=== PATIENT | male | born 1965 | race Caucasian/White ===

== ENCOUNTER 2019-03-09 06:14 | Day surgery (SDC) | payer BC, OTHER ==
[2019-03-09] MEDS ORDERED: ONDANSETRON 4 MG/2 ML VIAL IVP STA (06:48)
[2019-03-09] MEDS ORDERED: SODIUM CHLORIDE 0.9% 1,000 ML IV ONE (06:48)
[2019-03-09] MEDS ORDERED: GLUCAGON 1 MG/ML VIAL IVP STA (06:49)
[2019-03-09] MEDS ORDERED: FAMOTIDINE 20 MG/2 ML VIAL IVP STA (06:50)
--- NOTE | 2019-03-09 06:53 | ED Physician Documentation ---
PD HPI HEENT - Stated complaint Stated Complaint: UNABLE TO EAT/DRINK - Chief complaint Chief Complaint: Heent - History obtained from History obtained from: Patient - History of Present Illness Timing - onset: How many hours ago (36) Timing - duration: Hours (36) Timing - details: Abrupt onset (He was eating chicken for dinner 1-1/2 days ago and towards the mid to end part of his meal he started eating a little faster to finish up and had the feeling of the bite of chicken getting caught in his esophagus. He is unable to swallow after that. Attempt at taking water or fluids which caused him to vomit. He was having some emesis of his saliva periodically that night and through the day. He was unable to get down liquids drinking. He states he was able to sleep last night without having to awaken to vomit his saliva. However attempting the even sips of water today caused him to have to vomit it back up and would cause still pressure in the esophageal and chest area. He has had this similarly happened in the past but typically for just a few minutes or so at a time. He would often be able to just wait a few minutes and then try sips of water and cola and it would either pass or he would vomit up and get the food up as well. He has not had any episodes as protracted as this.) Location: Throat (impacted chicken from his dinner Wednesday, still stuck.) Worsens: Swalllowing Associated symptoms: Unable to swallow. No: Fever, Congestion, Swollen nodes Similar symptoms before: No diagnosis (would only be for few minutes in the past, before then resolves.) Recently seen: Not recently seen Review of Systems Constitutional: denies: Fever Nose: denies: Rhinorrhea / runny nose, Congestion Throat: denies: Sore throat Cardiac: denies: Palpitations Respiratory: denies: Dyspnea, Cough GI: reports: Nausea, Vomiting. denies: Abdominal Pain, Diarrhea Neurologic: reports: Generalized weakness. denies: Near syncope, Altered mental status, Headache PD PAST MEDICAL HISTORY - Past Medical History Past Medical History: No Cardiovascular: None Respiratory: None Neuro: None Endocrine/Autoimmune: None - Past Surgical History Past Surgical History: Yes HEENT: Tonsil/Adenoidectomy - Present Medications Home Medications: Ambulatory Orders Medication Instructions Recorded Confirmed No Known Home Medications 03/09/19 03/09/19 - Allergies Allergies/Adverse Reactions: Allergies Allergy/AdvReac Type Severity Reaction Status Date / Time aspirin Allergy Edema Verified 03/09/19 06:23 - Social History Does the pt smoke?: No Smoking Status: Never smoker ETOH Use: Liquor Does the pt have substance abuse?: No - Immunizations Immunizations are current?: Yes - POLST Patient has POLST: No PD ED PE NORMAL - Vitals Vital signs reviewed: Yes - General General: Alert and oriented X 3, No acute distress, Well developed/nourished - HEENT HEENT: Pharynx benign - Neck Neck: Supple, no meningeal sign, No adenopathy - Cardiac Cardiac: RRR, No murmur - Respiratory Respiratory: Clear bilaterally - Abdomen Abdomen: Soft, Non tender - Derm Derm: Normal color, Warm and dry - Neuro Neuro: Alert and oriented X 3, No motor deficit, Normal speech Results - Vitals Vitals: Vital Signs - 24 hr 03/09/19 06:18 Temperature 36.3 C L Heart Rate 48 L Respiratory 16 Rate Blood Pressure 145/84 H O2 Saturation 100 - Labs Labs: Laboratory Tests 03/09/19 03/09/19 03/09/19 06:55 06:55 07:14 WBC 3.9 L RBC 4.94 Hgb 16.0 Hct 46.0 MCV 93.3 MCH 32.4 H MCHC 34.7 RDW 13.5 Plt Count 263 MPV 8.6 Neut # (Auto) 2.2 Lymph # (Auto) 1.1 L [place] # (Auto) 0.5 Eos # (Auto) 0.1 Baso # (Auto) 0.1 Absolute Nucleated RBC 0.00 Nucleated RBC % 0.0 Sodium 143 Potassium 4.1 Chloride 103 Carbon Dioxide 29 Anion Gap 11.0 BUN 29 H Creatinine 0.9 Estimated GFR (MDRD) 89 Glucose 93 POC Whole Bld Glucose 75 Calcium 9.5 Total Bilirubin 1.4 H AST 28 ALT 29 Alkaline Phosphatase 49 Total Protein 8.3 H Albumin 4.6 Globulin 3.7 Albumin/Globulin Ratio 1.2 Lipase 27 PD MEDICAL DECISION MAKING - ED course Complexity details: considered differential (This sounds very consistent with a food impaction. He has been prolonged now for a day and a half. We can try some IV medications along with carbonated beverage and see if that helps. We will give him IV fluids for his dehydration he would have for that time course. If this does not readily improve his ability to swallow, then will contact surgery for endoscopic treatment.), d/w patient, d/w clinical sales consultant (The patient did not improve with IV medications and attempted oral fluids again. I talked with Dr. Morrell who will come in to evaluate and treat the patient endoscopically.) Departure - Departure Clinical Impression: Esophageal obstruction due to food impaction, Dehydration Condition: Stable Record reviewed to determine appropriate education?: Yes
[2019-03-09 07:05] LABS: BASOPHILS # (AUTO) 0.1 10^3/uL (0.0-0.1); BASOPHILS % (AUTO) 2.2 %; EOSINOPHILS # (AUTO) 0.1 10^3/uL (0.0-0.7); LYMPHOCYTES # (AUTO) 1.1 10^3/uL (1.5-3.5); LYMPHOCYTES % (AUTO) 27.7 %; MEAN CORPUSCULAR HEMOGLOBIN 32.4 pg (27.0-31.0); MEAN CORPUSCULAR HGB CONC 34.7 g/dL (32.0-36.0); MEAN CORPUSCULAR VOLUME 93.3 fL (80.0-94.0); MEAN PLATELET VOLUME 8.6 fL (7.4-11.4); MONOCYTES # (AUTO) 0.5 10^3/uL (0.0-1.0); MONOCYTES % (AUTO) 11.6 %; NEUTROPHILS # (AUTO) 2.2 10^3/uL (1.5-6.6); NEUTROPHILS % (AUTO) 55.5 %; PLT - PLATELET COUNT 263 10^3/uL (130-450); RED BLOOD COUNT 4.94 10^6/uL (4.70-6.10); RED CELL DISTRIBUTION WIDTH 13.5 % (12.0-15.0); WHITE BLOOD COUNT 3.9 x10^3/uL (4.8-10.8)
[2019-03-09 07:19] LABS: ALBUMIN 4.6 g/dL (3.2-5.5); ALBUMIN/GLOBULIN RATIO 1.2 (1.0-2.2); BILIRUBIN,TOTAL 1.4 mg/dL (0.2-1.0); CALCIUM 9.5 mg/dL (8.5-10.3); CREATININE 0.9 mg/dL (0.6-1.2); TOTAL PROTEIN 8.3 g/dL (6.7-8.2)
--- NOTE | 2019-03-09 09:53 | ANESTHESIA ---
Pre-Anesthesia VS, & Labs - Diagnosis food bolus@esophagus - Procedure EGD, food bolus removal Vital Signs: Temp Pulse Resp BP Pulse Ox 36.3 C L 48 L 16 145/84 H 100 03/09/19 06:18 03/09/19 06:18 03/09/19 06:18 03/09/19 06:18 03/09/19 06:18 Height 6 ft 4 in Weight (kg) 86.183 kg Body Mass Index 23.1 - NPO >8 hours Last Fluid Intake: attempted fluids t/o AM - Lab Results Current Lab Results: Laboratory Tests 03/09/19 07:14: POC Whole Bld Glucose 75 03/09/19 06:55: Sodium 143, Potassium 4.1, Chloride 103, Carbon Dioxide 29, Anion Gap 11.0, BUN 29 H, Creatinine 0.9, Estimated GFR (MDRD) 89, Glucose 93, Calcium 9.5, Total Bilirubin 1.4 H, AST 28, ALT 29, Alkaline Phosphatase 49, Total Protein 8.3 H, Albumin 4.6, Globulin 3.7, Albumin/Globulin Ratio 1.2, Lipase 27 03/09/19 06:55: WBC 3.9 L, RBC 4.94, Hgb 16.0, Hct 46.0, MCV 93.3, MCH 32.4 H, MCHC 34.7, RDW 13.5, Plt Count 263, MPV 8.6, Neut # (Auto) 2.2, Lymph # (Auto) 1.1 L, [place] # (Auto) 0.5, Eos # (Auto) 0.1, Baso # (Auto) 0.1, Absolute Nucleated RBC 0.00, Nucleated RBC % 0.0 Lab results reviewed: Yes Fish Bones: 03/09/19 06:55 03/09/19 06:55 Home Medications and Allergies Home Medications: Ambulatory Orders No Known Home Medications 03/09/19 No Known Home Medications 03/09/19 Allergies/Adverse Reactions: Allergies Allergy/AdvReac Type Severity Reaction Status Date / Time aspirin Allergy Edema Verified 03/09/19 06:23 Anes History & Medical History - Anesthetic History Anesthesia Complications: reports: No previous complications Family history of Anesthesia Complications: Denies Family history of Malignant Hyperthermia: Denies - Medical History Cardiovascular: reports: None Pulmonary: reports: None Neuro: reports: None Endocrine/Autoimmune: reports: None Smoking Status: Never smoker - Surgical History Eyes Ears Nose Throat (EENT): Tonsil/Adenoidectomy Exam General: Alert, Oriented x3, Cooperative Dental: WNL Mouth Openin Fingerbreadth Neck Mobility: Normal Mallampati classification: I Respiratory: Lungs clear, Normal breath sounds Cardiovascular: Regular rate Neurological: Normal speech Mental/Cognitive Status: Alert/Oriented X3, Normal for patient Cognitive Status: Within normal limits Plan Anesthesia Type: General Consent for Procedure(s) Verified and Reviewed: Yes Code Status: Attempt Resuscitation ASA classification: 1-Healthy patient Is this case an emergency?: Yes
[2019-03-09] MEDS ORDERED: LACTATED RINGERS 1,000 ML IV ONE ×2 (11:13→11:34)
[2019-03-09] MEDS ORDERED: ROCURONIUM 50 MG/5 ML VIAL IVP ONE (11:35)
[2019-03-09] MEDS ORDERED: MIDAZOLAM 2 MG/2 ML VIAL IVP ONE (11:35)
[2019-03-09] MEDS ORDERED: fentaNYL 100 MCG/2 ML VIAL IVP ONE (11:35)
[2019-03-09] MEDS ORDERED: ONDANSETRON 4 MG/2 ML VIAL IVP ONE (11:35)
[2019-03-09] MEDS ORDERED: DEXAMETHASONE 4 MG/ML VIAL IVP ONE (11:35)
[2019-03-09] MEDS ORDERED: PROPOFOL 200 MG/20 ML VIAL IVP ONE (11:35)
[2019-03-09] MEDS ORDERED: SUCCINYLCHOLINE 200 MG/10 ML VIAL IVP ONE (11:35)
[2019-03-09] MEDS ORDERED: LIDOCAINE-MPF 1% 5 ML VIAL SUBQ ONE (11:35)
--- NOTE | 2019-03-09 12:06 | CONSULTATION NOTE ---
Referring Provider Name of Referring Provider:: Dr. Nabeel Franco Consult Date: 03/09/19 Chief Complaint - Chief Complaint Chief Complaint: Esophageal obstruction with chicken History of Present Illness - Admitted From Admitted From:: Not admitted - outpatient - History Obtained From Records Reviewed: Yes but not much information there History obtained from: Patient and Dr. Franco Exam Limitations: None - History of Present Illness HPI Comment/Other: Dr. Nabeel Franco called me on consultation to evaluate and treat this very pleasant 53-year-old male for esophageal obstruction due to chicken. This occurred night during dinner. The patient states that he has had this occur numerous times over the past 3 to 4 years but this always has resolved with time. Sometimes like to drink some fluid or soda to get this food bolus to go down. This time it did not. Sometimes he is able to throw up and because the food to become dislodged but again this time it did not. Prior to this he denies any hematemesis, melena, hematochezia, weight loss, constipation, diarrhea, or change in his bowel habits. He has not had a previous EGD. 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 History - Past Medical History Cardiovascular: reports: None Respiratory: reports: None Neuro: reports: None Endocrine/Autoimmune: reports: None MRSA Hx?: No - Past Surgical History HEENT: reports: Tonsil/Adenoidectomy - POLST Patient has POLST: No Meds/Allgy - Home Medications Home Medications: Ambulatory Orders Medication Instructions Recorded Confirmed No Known Home Medications 03/09/19 03/09/19 - Allergies Allergies/Adverse Reactions: Allergies Allergy/AdvReac Type Severity Reaction Status Date / Time aspirin Allergy Edema Verified 03/09/19 06:23 Review of Systems - Constitutional Constitutional: denies: Fatigue - Eyes Eyes: denies: Pain - Ears, Nose & Throat Ears, Nose & Throat: denies: Ear pain - Cardiovascular Cariovascular: reports: Chest pain (There has been some increasing chest pain with his inability to swallow this piece of food.). denies: Irregular heart rate - Respiratory Respiratory: denies: Cough, Sputum production, Wheezing, Hemoptysis - Gastrointestinal Gastrointestinal: denies: Abdominal pain, Abdominal distention, Constipation, Diarrhea, Change in bowel habits, Rectal bleeding - Genitourinary Genitourinary: denies: Dysuria - Musculoskeletal Musculoskeletal: denies: Muscle pain, Back pain - Neurological Neurological: denies: General weakness, Focal weakness Exam - Vital Signs Reviewed Vital Signs: Yes Vital Signs: Vital Signs x48h Temp Pulse Resp BP Pulse Ox 03/09/19 10:31 42 L 14 136/78 H 100 03/09/19 06:18 36.3 C L 48 L 16 145/84 H 100 - Physical Exam General Appearance: positive: Mild distress (Sitting up, throwing up in a blue bag in room 6 at [facility] emergency department.) Eyes Bilateral: positive: No lid inflammation, Conjunctivae nml, No scleral icterus ENT: positive: Dry mucous membranes Neck: positive: Trachea midline Respiratory: positive: Chest non-tender, No respiratory distress, Breath sounds nml Cardiovascular: positive: Regular rate & rhythm Abdomen: positive: Non-tender, No organomegaly, Nml bowel sounds, No distention Skin: positive: Color nml Extremities: positive: Nml appearance Neurologic/Psychiatric: positive: Oriented x3, Motor nml, Sensation nml, Mood/affect nml Conclusion/Plan - Diagnosis Diagnosis: Esophageal obstruction due to food bolus - Plan Plan: Esophagogastroduodenoscopy with removal of food bolus and possible biopsies and/or polypectomies. Indications, procedure, and risks including but not limited to perforation requiring operative repair, bleeding with its risks, and were fully explained to him. Safety during this procedure mandates that the patient be intubated for it. Review of his history does not reveal any significant systemic disease that would contraindicate use of anesthesia. All questions were fully answered. Verbal and written consent was obtained. The patient in preparation for his esophagogastroduodenoscopy will be n.p.o. 45 minutes of [id number] time spent with the patient the majority of which was spent in discussion, coordination of their care, and completion of the requisite paperwork [employer] disclaimer: This document was created in part using voice recognition technology. Because of the inherent limitations of the system ([employer] user manual states that the licensee understands that speech recognition is a statistical process and that recognition errors are inherent in the process), occasional sa me sounding word substitutions and grammatical errors do occur and persist despite proofreading. Please read this document for context. - Lab Results Lab results reviewed: Yes Jason Bones: 03/09/19 06:55 03/09/19 06:55
[2019-03-09] MEDS ORDERED: HYDROmorphone 0.5 MG/0.5 ML SYRINGE ONE (12:31)
[2019-03-09 13:23] VITALS: BP 138/82
== END 2019-03-09 09:16 | disposition home or self-care (01) ==
LOC: ED 06:14 → SDS 09:15
PROVIDERS: ATTEND Surgery
PROC: 0DC58ZZ Extirpation of Matter from Esophagus, Via Natural or Artificial Opening Endoscopic (ICD-10-PCS; principal; 2019-03-09 11:00)
DX: T18.128A Food in esophagus causing other injury, initial encounter (principal); X58.XXXA Exposure to other specified factors, initial encounter; Y92.009 Unspecified place in unspecified non-institutional (private) residence as the place of occurrence of the external cause; K22.8 Other specified diseases of esophagus; K29.70 Gastritis, unspecified, without bleeding
CPT/HCPCS: 36415; 43247; 80053; 83690; 85025; 96361; 96374; 96375; 99283; 99284; J0330; J1170; J7120

== ENCOUNTER 2019-05-04 06:48 | Day surgery (SDC) | payer OTHER ==
[2019-05-04] MEDS ORDERED: LACTATED RINGERS 1,000 ML IV ONE (06:59)
[2019-05-04] MEDS ORDERED: LIDO GARGLE 30 ML BOTTLE ONE (07:17)
[2019-05-04] MEDS ORDERED: MIDAZOLAM 2 MG/2 ML VIAL IVP ONE (08:02)
[2019-05-04] MEDS ORDERED: fentaNYL 250 MCG/5 ML VIAL IVP ONE (08:02)
[2019-05-04] MEDS ORDERED: LIDO GARGLE 30 ML BOTTLE PO ONE (08:13)
[2019-05-04] MEDS ORDERED: BENZOCAINE/TETRACAINE/BUTAMBEN 20 GM MM ONE (08:13)
[2019-05-04 08:49] VITALS: BP 106/51
== END 2019-05-04 06:49 | disposition home or self-care (01) ==
LOC: SDS 06:48
PROVIDERS: ATTEND Surgery
PROC: 0DB38ZX Excision of Lower Esophagus, Via Natural or Artificial Opening Endoscopic, Diagnostic (ICD-10-PCS; principal; 2019-05-04 08:00)
DX: K20.9 Esophagitis, unspecified (principal); K22.2 Esophageal obstruction
CPT/HCPCS: 43239; A9270; J3010; J7120